=== PATIENT | male | born 1955 | race Caucasian/White ===

== ENCOUNTER → 2022-01-03 | Outpatient (CLI) | payer MEDICARE ==
[~2022-01-03] MED LIST: GASTROGRAFIN SOLUTION 30ML (Q9963) As Ordered ONE; ISOVUE-370 76% 100ML VIAL As Ordered ONE
== END ==
LOC: M RAD 09:09
PROVIDERS: ATTEND Nurse Practitioner Family
DX: R22.1 Localized swelling, mass and lump, neck (principal); J38.01 Paralysis of vocal cords and larynx, unilateral; Z85.01 Personal history of malignant neoplasm of esophagus; Z85.118 Personal history of other malignant neoplasm of bronchus and lung; R49.0 Dysphonia
CPT/HCPCS: 70491; 71260; Q9967

== ENCOUNTER → 2022-01-30 | Outpatient (CLI) | payer MEDICARE, OTHER | LOC: M PLARAD 09:47 | PROVIDERS: ATTEND Internal Medicine | DX: R91.1 Solitary pulmonary nodule (principal) | CPT/HCPCS: 78815; A9552 ==

== ENCOUNTER → 2022-11-13 | Outpatient (CLI) | payer MEDICARE ==
[~2022-11-13] MED LIST changes: +ALBU8.5H; +ASPI81CH33 PO; +CULTCAP2 PO; +DICL1GEL3; +DICY-61; +DIPH2.5T15 PO; +FAMO40SU2; +FENT12DI8 TOP; +FENT1DIS14; +FENT1DIS14 TD; +GABA250S11 PO; -GASTROGRAFIN SOLUTION 30ML (Q9963) As Ordered ONE; -ISOVUE-370 76% 100ML VIAL As Ordered ONE; +LIDO30CR18 TOP; +LOPE1CAP5 PO; +MIDO10TA; +MIRT-10; +NARC1SPR NARES; +NITR0.4S14; +ONDA4SOL; +OXYC1SOL3; +OXYC1SOL3 PO; +SODI3NEB
== END ==
LOC: M RAD 08:18
PROVIDERS: ATTEND Internal Medicine Hematology & Oncology
DX: Z53.9 Procedure and treatment not carried out, unspecified reason (principal)

== ENCOUNTER → 2022-11-29 | Outpatient (CLI) | payer MEDICARE ==
[~2022-11-29] VITALS: Ht 180.3 cm; Wt 60.2 kg
[~2022-11-29] MED LIST changes: +DICL100G10; -DICL1GEL3; +FENT1PAT25 TD; +IBUP100S17 PEG; +LACT20EL PO; +ONDA4SOL PO; +RSO
[2022-11-29 08:38] VITALS: BP 127/76; TEMP 97; O2SAT 94
== END ==
LOC: M PAL 08:30
PROVIDERS: ATTEND Nurse Practitioner Adult Health
DX: C15.9 Malignant neoplasm of esophagus, unspecified (principal); C78.89 Secondary malignant neoplasm of other digestive organs; Z85.118 Personal history of other malignant neoplasm of bronchus and lung; Z85.820 Personal history of malignant melanoma of skin; G89.3 Neoplasm related pain (acute) (chronic); G62.0 Drug-induced polyneuropathy; L30.9 Dermatitis, unspecified; R53.83 Other fatigue; Z51.5 Encounter for palliative care; Z79.1 Long term (current) use of non-steroidal anti-inflammatories (NSAID); Z79.82 Long term (current) use of aspirin; Z79.891 Long term (current) use of opiate analgesic; Z79.899 Other long term (current) drug therapy; Z90.3 Acquired absence of stomach [part of]; Z90.49 Acquired absence of other specified parts of digestive tract; Z88.0 Allergy status to penicillin; Z88.1 Allergy status to other antibiotic agents; Z91.048 Other nonmedicinal substance allergy status; Z92.21 Personal history of antineoplastic chemotherapy; Z87.891 Personal history of nicotine dependence; Z93.1 Gastrostomy status

== ENCOUNTER → 2022-12-07 | Outpatient (CLI) | payer MEDICARE ==
[~2022-12-07] MED LIST changes: +BARIUM SULFATE 700 MG TABLET (E-Z-DISK) As Ordered ONE; +E-Z-PAQUE 96% w/w SUSP 176GM BTL As Ordered ONE; +VARIBAR NECTAR 40% w/v 240ML SUSP BTL As Ordered ONE; +VARIBAR PUDDING 40% w/v 230ML TUBE As Ordered ONE
== END ==
LOC: M RAD 10:36
PROVIDERS: ATTEND Internal Medicine Hematology & Oncology
DX: C15.9 Malignant neoplasm of esophagus, unspecified (principal); R13.10 Dysphagia, unspecified